=== PATIENT | female | born 1970 | race Caucasian/White ===

== ENCOUNTER 2024-02-02 11:11 | Emergency (ER) | payer BC ==
[2024-02-02] MEDS ORDERED: ONDANSETRON *ODT* 4 MG TABLET ONE (11:34)
[2024-02-02] MEDS: ONDANSETRON *ODT* 4 MG TABLET SL ONE (11:36)
[2024-02-02] MEDS: SODIUM CHLORIDE 0.9% 500 ML INFUS.BAG IV ONE (11:55)
[2024-02-02 12:13] LABS: HEMATOCRIT 48.3 % (32.4-45.2); HEMOGLOBIN 15.8 G/dL (10.7-15.3); MCH 29.9 pg (25.7-33.7); MCHC 32.8 g/dl (32.0-36.0); MEAN CELL VOLUME 91.1 fl (80-96); MEAN PLT VOLUME 10.6 fl (7.5-11.1); PLATELET COUNT 380.5 10^3/uL (134-434); RDW 17.4 % (11.6-15.6); WHITE BLOOD COUNT 29.4 10^3/uL (4.0-10.8)
[2024-02-02] MEDS: ACETAMINOPHEN 500 MG TABLET (FP) PO ONE (12:26)
[2024-02-02 12:39] LABS: ALBUMIN 3.9 g/dl (3.4-5.0); ALK PHOS 133 U/L (45-117); ANION GAP 10 mmol/L (4-13); BILIRUBIN,TOTAL 1.4 mg/dl (0.2-1); CALCIUM 9.1 mg/dl (8.5-10.1); CHLORIDE 101 mmol/L (98-107); CO2 27 mmol/L (21-32); CREATININE 0.9 mg/dl (0.6-1.3); GLUCOSE,RANDOM 114 mg/dl (74-106); POTASSIUM 3.4 mmol/L (3.5-5.1); SGOT/AST 14 U/L (15-37); SGPT/ALT 16 U/L (7-52); SODIUM 138 mmol/L (136-145)
[2024-02-02 12:49] VITALS: BP 124/73; PULSE 86; RESP 20; TEMP 100; BMI 28.3
[2024-02-02 12:59] LABS: PLATELET ESTIMATE ADEQUATE
[2024-02-02] MEDS ORDERED: KETOROLAC TROMETHAMINE 15 MG/ML VIAL ONE (13:49)
[2024-02-02] MEDS: KETOROLAC TROMETHAMINE 15 MG/ML VIAL IVPUSH ONE (14:05)
== END 2024-02-02 15:10 | disposition home or self-care (01) ==
LOC: FER 11:11
PROC: 3E0333Z Introduction of Anti-inflammatory into Peripheral Vein, Percutaneous Approach (ICD-10-PCS; principal; 2024-02-02)
DX: R11.2 Nausea with vomiting, unspecified (principal); M79.671 Pain in right foot; R10.84 Generalized abdominal pain; R50.9 Fever, unspecified; R53.1 Weakness; M79.10 Myalgia, unspecified site; R53.83 Other fatigue; W22.8XXA Striking against or struck by other objects, initial encounter; Z20.822 Contact with and (suspected) exposure to COVID-19
CPT/HCPCS: 0241U-QW; 36415; 71046-TC-FY; 73630-TC-RT-FY; 80053; 83690; 85027; 99284-25; Q0162